=== PATIENT | female | born 1970 | race Caucasian/White ===

== ENCOUNTER 2016-09-27 21:26 | Emergency (ER) | payer SELFPAY ==
[2015-07-02 23:44] VITALS: BP 122/78
[~2016-09-27 21:26] MED LIST: CITA20TA9 PO; CYAN1TAB28 PO; DIAZ5TAB PO; LEVE500T56 PO
[2016-10-06] MEDS ORDERED: FLUO10CA13 PO (01:29)
[2016-10-06] MEDS ORDERED: OMEP20TA63 PO (01:29)
[2016-10-06] MEDS ORDERED: GABA-586 PO (01:29)
== END 2016-09-27 21:32 | disposition left against medical advice (07) ==
LOC: ER 21:26
DX: F10.129 Alcohol abuse with intoxication, unspecified (principal); Z53.21 Procedure and treatment not carried out due to patient leaving prior to being seen by health care provider

== ENCOUNTER 2017-02-28 17:12 | Emergency (ER) | payer SELFPAY ==
[2017-02-28] MEDS: DIPHTH,PERTUSS(ACELL),TET TOX 0.5 ML DISP.SYRIN. VAX IM (17:49)
[2017-02-28] MEDS: LIDOCAINE WITH 8.4% SOD BICARB 3 ML DISP.SYRIN. IJ (18:19)
== END 2017-02-28 19:02 | disposition home or self-care (01) ==
LOC: ER 17:12
DX: S01.312A Laceration without foreign body of left ear, initial encounter (principal); S00.03XA Contusion of scalp, initial encounter; F10.20 Alcohol dependence, uncomplicated; F41.9 Anxiety disorder, unspecified; Z88.1 Allergy status to other antibiotic agents; Z91.013 Allergy to seafood; Z90.710 Acquired absence of both cervix and uterus; X58.XXXA Exposure to other specified factors, initial encounter; Y93.89 Activity, other specified; Y92.89 Other specified places as the place of occurrence of the external cause; Y99.8 Other external cause status
CPT/HCPCS: 12011; 70450; 72125; 90471; 90715; 99285-25

== ENCOUNTER 2017-06-26 21:52 | Emergency (ER) | payer SELFPAY ==
[2017-06-26] MEDS: IV NORMAL SALINE 1000ML BAG 1,000 ML IV (23:10)
[2017-06-26] MEDS: ONDANSETRON PF 4 MG/2 ML VIAL. IV (23:11)
[2017-06-26] MEDS: FAMOTIDINE 20 MG/2 ML VIAL IVP (23:13)
[2017-06-26 23:17] LABS: ADD MAN DIFF? NO
[2017-06-26 23:21] LABS: BASO # 0.1 x10^3/uL (0.0-0.2); BASO % 3 % (0-3); EOS % 0 % (0-3); HEMATOCRIT 46.4 % (36.0-47.0); HEMOGLOBIN 16.2 g/dL (12.0-15.5); LYMPH # 1.9 x10^3/uL (1.0-4.8); LYMPH % 52 % (24-48); MEAN CORPUSCULAR HEMOGLOBIN 33 pg (25-35); MEAN CORPUSCULAR HGB CONC 35 g/dL (31-37); MEAN CORPUSCULAR VOLUME 95 fL (79-100); MONO # 0.3 x10^3/uL (0.0-1.1); MONO % 7 % (0-9); NEUT # 1.4 x10^3uL (1.8-7.7); NEUT % 38 % (31-73); PLATELET COUNT 282 x10^3/uL (140-400); RED BLOOD COUNT 4.86 x10^6/uL (3.50-5.40); RED CELL DISTRIBUTION WIDTH 12.6 % (11.5-14.5); WHITE BLOOD COUNT 3.7 x10^3/uL (4.0-11.0)
[2017-06-26 23:30] LABS: PARTIAL THROMBOPLASTIN TIME 31 SEC (24-38)
[2017-06-26 23:31] LABS: ANION GAP 19 (6-14); BLOOD UREA NITROGEN 7 mg/dL (7-20); CALCIUM 8.3 mg/dL (8.5-10.1); CARBON DIOXIDE 26 mmol/L (21-32); CHLORIDE 95 mmol/L (98-107); CREATININE 0.7 mg/dL (0.6-1.0); GFR 90.5; GLUCOSE 98 mg/dL (70-99); POTASSIUM 3.8 mmol/L (3.5-5.1); SODIUM 140 mmol/L (136-145)
[2017-06-26 23:36] LABS: ALK PHOS 98 U/L (46-116); ALT (SGPT) 142 U/L (14-59); AST (SGOT) 246 U/L (15-37); DIRECT BILIRUBIN 0.2 mg/dL (0.0-0.2); MAGNESIUM 2.2 mg/dL (1.8-2.4); TOTAL BILIRUBIN 0.6 mg/dL (0.2-1.0); TOTAL PROTEIN 8.4 g/dL (6.4-8.2)
[2017-06-26 23:39] LABS: TROPONINI < 0.017 ng/mL (0.000-0.055)
[2017-06-26 23:41] LABS: ETHANOL 446 mg/dL (0-10)
[2017-06-26 23:44] LABS: THYROID STIM HORMONE (TSH) 2.427 uIU/mL (0.358-3.74)
[2017-06-26 23:47] LABS: CKMB MASS < 0.5 ng/mL (0.0-3.6); CREATINE KINASE 110 U/L (26-192)
[2017-06-27] MEDS: ONDANSETRON PF 4 MG/2 ML VIAL. IV (01:07)
[2017-06-27] MEDS ORDERED: THIAMINE 100 MG in IV DEXTROSE 5% 50 ML IV (09:00)
== END 2017-06-27 01:10 | disposition home or self-care (01) ==
LOC: ER 06-27 01:10
DX: F10.229 Alcohol dependence with intoxication, unspecified (principal); E03.9 Hypothyroidism, unspecified; F41.9 Anxiety disorder, unspecified; Z88.1 Allergy status to other antibiotic agents; Z91.013 Allergy to seafood
CPT/HCPCS: 36415; 80048; 80076; 82553; 83735; 84443; 84484; 85025; 85610; 85730; 93005; 96361; 96374; 96375; 96376; 99285-25; G0480; J2405; J7030; S0028

== ENCOUNTER 2017-06-29 15:07 | Emergency (ER) | payer SELFPAY ==
[2017-06-29 16:26] LABS: BILIRUBIN,URINE NEGATIVE (NEG); CLARITY,URINE CLEAR; COLOR,URINE YELLOW; GLUCOSE,URINE NEGATIVE (NEG); NITRITE,URINE NEGATIVE (NEG); PH,URINE 6.5; PROTEIN,URINE NEGATIVE (NEG-TRACE); UROBILINOGEN,URINE 0.2 mg/dL (0.2 mg/dL)
[2017-06-29 16:29] LABS: BARBITURATES NEG (NEG); BENZODIAZEPINES NEG (NEG); CANNABINOIDS NEG (NEG); COCAINE NEG (NEG); METHADONE NEG (NEG); OPIATES NEG (NEG); PHENCYCLIDINE NEG (NEG)
[2017-06-29 16:30] LABS: AMPHETAMINE/METHAMPHETAMINE NEG (NEG); ETHANOL, URINE POS (NEG)
[2017-06-29 16:51] LABS: BACTERIA,URINE FEW /HPF (0-FEW); RBC,URINE OCC /HPF (0-2); SQUAMOUS EPITHELIAL CELL,UR OCC /LPF; WBC,URINE OCC /HPF (0-4)
[2017-06-29] MEDS: ZIPRASIDONE IM 20 MG VIAL. IM (17:03)
[2017-06-29] MEDS: MULTIVIT INFUSN,ADULT 4,VIT K 10 ML, THIAMINE 100 MG, FOLIC ACID 1 MG in IV NORMAL SALI... IV (17:04)
[2017-06-29 19:05] LABS: ADD MAN DIFF? NO
[2017-06-29 19:11] LABS: BASO % 1 % (0-3); EOS % 0 % (0-3); HEMATOCRIT 43.1 % (36.0-47.0); HEMOGLOBIN 14.8 g/dL (12.0-15.5); LYMPH # 1.4 x10^3/uL (1.0-4.8); LYMPH % 41 % (24-48); MEAN CORPUSCULAR HEMOGLOBIN 34 pg (25-35); MEAN CORPUSCULAR HGB CONC 34 g/dL (31-37); MEAN CORPUSCULAR VOLUME 98 fL (79-100); MONO # 0.2 x10^3/uL (0.0-1.1); MONO % 6 % (0-9); NEUT # 1.8 x10^3uL (1.8-7.7); NEUT % 52 % (31-73); PLATELET COUNT 128 x10^3/uL (140-400); RED BLOOD COUNT 4.42 x10^6/uL (3.50-5.40); RED CELL DISTRIBUTION WIDTH 12.5 % (11.5-14.5); WHITE BLOOD COUNT 3.4 x10^3/uL (4.0-11.0)
[2017-06-29 19:23] LABS: ANION GAP 17 (6-14); BLOOD UREA NITROGEN 5 mg/dL (7-20); CARBON DIOXIDE 24 mmol/L (21-32); CHLORIDE 101 mmol/L (98-107); CREATININE 0.6 mg/dL (0.6-1.0); GFR 108.1; GLUCOSE 86 mg/dL (70-99); POTASSIUM 3.4 mmol/L (3.5-5.1); SODIUM 142 mmol/L (136-145)
[2017-06-29 19:29] LABS: ALBUMIN 3.7 g/dL (3.4-5.0); ALK PHOS 87 U/L (46-116); ALT (SGPT) 204 U/L (14-59); AST (SGOT) 339 U/L (15-37); DIRECT BILIRUBIN 0.3 mg/dL (0.0-0.2); TOTAL BILIRUBIN 0.9 mg/dL (0.2-1.0); TOTAL PROTEIN 7.5 g/dL (6.4-8.2)
[2017-06-29 19:39] LABS: ETHANOL 343 mg/dL (0-10)
== END 2017-06-29 20:10 | disposition home or self-care (01) ==
LOC: ER 15:07
DX: F10.229 Alcohol dependence with intoxication, unspecified (principal); F41.9 Anxiety disorder, unspecified; Z88.1 Allergy status to other antibiotic agents; Z91.013 Allergy to seafood; Z90.710 Acquired absence of both cervix and uterus
CPT/HCPCS: 36415; 80048; 80076; 80307; 81001; 83735; 85025; 93005; 96365; 96372; 99285-25; G0480; J3486; J7030